=== PATIENT | male | born 1965 | race Caucasian/White ===

== ENCOUNTER 2018-05-04 16:06 | Observation (INO) | payer MEDICAID ==
[~2018-05-04] VITALS: Ht 177.8 cm; Wt 103.1 kg
[~2018-05-04 16:06] MED LIST: ALLO300T80 PO; BENA40TA3 PO; BUDE10.2; CARV12.543 PO; OXYC15TA60
[2018-05-04] MEDS ORDERED: ONDANSETRON 2MG/ML, 2ML IVPush ONE (16:30)
[2018-05-04] MEDS ORDERED: MAALOX/HYOSCYAMINE/LIDOCAINE 45 ML BTL PO ONE (16:30)
[2018-05-04] MEDS ORDERED: ASPIRIN 81 MG TABLET CHEW PO ONE (16:30)
[2018-05-04] MEDS ORDERED: ASPIRIN 81 MG TABLET CHEW ONE (16:48)
[2018-05-04] MEDS ORDERED: MAALOX/HYOSCYAMINE/LIDOCAINE 45 ML BTL ONE (16:49)
[2018-05-04] MEDS ORDERED: ONDANSETRON 2MG/ML, 2ML ONE (16:49)
[2018-05-04 16:51] LABS: BASOPHILS # (AUTO) 0.05 x10^3/uL (0-0.1); BASOPHILS % (AUTO) 0 % (0-1); EOSINOPHILS # (AUTO) 0.35 x10^3/uL (0-0.4); EOSINOPHILS % (AUTO) 2 % (1-7); LYMPHOCYTES # (AUTO) 3.18 x10^3/uL (1-3.4); LYMPHOCYTES % (AUTO) 21 % (22-44); MD NO; MEAN CORPUSCULAR HEMOGLOBIN 29.2 pg (27.5-34.5); MEAN CORPUSCULAR HGB CONC 33.2 g/dL (33.2-36.2); MEAN CORPUSCULAR VOLUME 87.7 fL (81-97); MEAN PLATELET VOLUME 7.8 fL (7.4-10.4); MONOCYTES # (AUTO) 0.79 x10^3/uL (0.2-0.8); MONOCYTES % (AUTO) 5 % (2-9); NEUTROPHILS # (AUTO) 10.75 x10^3/uL (1.8-6.8); NEUTROPHILS % (AUTO) 71 % (42-75); PLATELET COUNT 269 x10^3/uL (130-400); RED BLOOD COUNT 6.12 x10^6/uL (4.38-5.82); RED CELL DISTRIBUTION WIDTH 15.3 % (9.4-14.8)
[2018-05-04 16:52] LABS: ALANINE AMINOTRANSFERASE 39 U/L (12-78); ALBUMIN 4.5 g/dL (3.4-5.0); ANION GAP 11 mmol/L (5-15); CALCIUM 9.1 mg/dL (8.5-10.1); CHLORIDE 98 mmol/L (98-107); CREATININE 1.12 mg/dL (0.7-1.3)
[2018-05-04 16:56] LABS: ALKALINE PHOSPHATASE 53 U/L (45-117); BILIRUBIN,TOTAL 0.6 mg/dL (0.2-1.0); TOTAL PROTEIN 8.2 g/dL (6.4-8.2); TROPONIN I < 0.015 ng/mL (0.000-0.045)
[2018-05-04] MEDS ORDERED: SODIUM CHLORIDE FLUSH 10ML SYR IVF ONE (17:00)
[2018-05-04] MEDS ORDERED: FLUT1AER INH (17:00)
[2018-05-04] MEDS ORDERED: MORPHINE SULFATE 4 MG/ML, 1ML ONE ×2 (17:03→18:12)
[2018-05-04] MEDS ORDERED: MORPHINE SULFATE 4 MG/ML, 1ML IVPush ONE ×2 (17:30→18:30)
[2018-05-04] MEDS ORDERED: METOCLOPRAMIDE 5 MG/ML, 2ML ONE ×2 (17:31→19:48)
[2018-05-04] MEDS ORDERED: METOCLOPRAMIDE 5 MG/ML, 2ML IVPush ONE ×2 (18:00→18:30)
[2018-05-04] MEDS ORDERED: OMNIPAQUE 350 MG/ML, 100ML BOTTLE ONE (19:10)
[2018-05-04] MEDS ORDERED: HALOPERIDOL 5 MG/ML ONE (20:21)
[2018-05-04] MEDS ORDERED: CAPSAICIN CRM 0.075%, 60GM TP ONE (20:30)
[2018-05-04] MEDS ORDERED: HALOPERIDOL 5 MG/ML IV ONE (20:30)
[2018-05-04] MEDS ORDERED: morphine SULFATE 10 MG/ML, 1ML IVPush PRN (21:00)
[2018-05-04] MEDS ORDERED: POLYETHYLENE GLYCOL 17 GM PACKET PO PRN (21:00)
[2018-05-04] MEDS ORDERED: PROMETHAZINE 25 MG/ML, 1ML IM PRN (21:00)
[2018-05-04] MEDS ORDERED: LABETALOL 5MG/ML, 20ML IVPush PRN (21:00)
[2018-05-04] MEDS ORDERED: ONDANSETRON ODT 4 MG PO PRN (21:00)
[2018-05-04] MEDS ORDERED: ACETAMINOPHEN 325 MG TABLET PO PRN (21:00)
[2018-05-04] MEDS ORDERED: BISACODYL 10 MG SUPP PR PRN (21:00)
[2018-05-04] MEDS ORDERED: hydrALAzine 20 MG/ML, 1ML IVPush PRN (21:00)
[2018-05-04] MEDS ORDERED: NITROGLYCERIN 0.4 MG BOTTLE (25 TABS) SL PRN (21:00)
[2018-05-04] MEDS ORDERED: ONDANSETRON 2MG/ML, 2ML IVPush PRN (21:00)
[2018-05-04 21:23] LABS: RAPID INFLUENZA A Negative (Negative); RAPID INFLUENZA B Negative (Negative)
[2018-05-04 21:46] LABS: FREE T4 (FREE THYROXINE) 1.1 ng/dL (0.76-1.46); THYROID STIMULATING HORMONE 1.62 mIU/L (0.358-3.740)
[2018-05-04 21:47] VITALS: BP 156/104
[2018-05-04] MEDS: HEPARIN 5,000 UNITS/ML, 1ML SQ SCH (22:40)
[2018-05-04] MEDS: SODIUM CHLORIDE 0.9% 1,000 ML IV SCH (22:40)
[2018-05-04 23:50] LABS: TROPONIN I < 0.015 ng/mL (0.000-0.045)
[2018-05-05] VITALS (7 sets, daily range): BP systolic 156–190; BP diastolic 91–118
[2018-05-05 01:52] LABS: CULTURE INDICATED? NO; MICROSCOPIC NOT IND
[2018-05-05] MEDS: HEPARIN 5,000 UNITS/ML, 1ML SQ SCH ×2 (05:44→12:45)
[2018-05-05 05:53] LABS: BASOPHILS # (AUTO) 0.01 x10^3/uL (0-0.1); BASOPHILS % (AUTO) 0 % (0-1); EOSINOPHILS % (AUTO) 0 % (1-7); LYMPHOCYTES # (AUTO) 1.35 x10^3/uL (1-3.4); LYMPHOCYTES % (AUTO) 9 % (22-44); MD NO; MEAN PLATELET VOLUME 8.4 fL (7.4-10.4); MONOCYTES # (AUTO) 0.18 x10^3/uL (0.2-0.8); MONOCYTES % (AUTO) 1 % (2-9); NEUTROPHILS # (AUTO) 13.11 x10^3/uL (1.8-6.8); NEUTROPHILS % (AUTO) 90 % (42-75); PLATELET COUNT 264 x10^3/uL (130-400); RED BLOOD COUNT 5.95 x10^6/uL (4.38-5.82); RED CELL DISTRIBUTION WIDTH 15.4 % (9.4-14.8)
[2018-05-05] MEDS: OXYcodone IR 5MG TABLET PO PRN ×2 (05:53→12:45)
[2018-05-05] MEDS ORDERED: ASPIRIN 325 MG TABLET EC PO SCH (06:00)
[2018-05-05 06:02] LABS: CHLORIDE 100 mmol/L (98-107)
[2018-05-05 06:12] LABS: ALANINE AMINOTRANSFERASE 41 U/L (12-78); ALBUMIN 4.1 g/dL (3.4-5.0); ALKALINE PHOSPHATASE 50 U/L (45-117); ANION GAP 9 mmol/L (5-15); BILIRUBIN,TOTAL 0.5 mg/dL (0.2-1.0); CALCIUM 8.3 mg/dL (8.5-10.1); CHOL/HDL RATIO 5.4; CHOLESTEROL, TOTAL 172 mg/dL (140-239); CREATININE 0.92 mg/dL (0.7-1.3); HDL CHOL % 19 % (26-37); HDL CHOLESTEROL (DIRECT) 32 mg/dL (40-60); LDL CHOLESTEROL,CALCULATED 87 mg/dL (54-169); LDL/HDL RATIO 2.7 (0.5-3.0); TOTAL PROTEIN 7.4 g/dL (6.4-8.2); TRIGLYCERIDES 265 mg/dL (50-200); TROPONIN I < 0.015 ng/mL (0.000-0.045); VLDL CHOLESTEROL 53 mg/dL (0-25)
[2018-05-05] MEDS: SODIUM CHLORIDE 0.9% 1,000 ML IV SCH (06:35)
[2018-05-05] MEDS ORDERED: FLUTICASONE/VILANTEROL 100-25MCG/INH INH SCH (09:00)
[2018-05-05] MEDS ORDERED: SENNA/DOCUSATE TABLET PO SCH (09:00)
[2018-05-05] MEDS ORDERED: BENAZEPRIL 20 MG TABLET PO SCH (09:00)
[2018-05-05] MEDS ORDERED: CARVEDILOL 12.5 MG TABLET PO SCH (09:00)
[2018-05-05] MEDS ORDERED: ALLOPURINOL 300 MG TABLET PO SCH (09:00)
[2018-05-05] MEDS ORDERED: REGADENOSON 0.4 MG/5 ML SYRINGE ONE (10:49)
[2018-05-05] MEDS ORDERED: AMLO5TAB7 PO (13:11)
== END 2018-05-05 14:31 | disposition home or self-care (01) ==
LOC: ED 18:14 → 5SO 20:57 → INTOOBSV 20:57 → DCLOUNGE 05-05 14:21
PROVIDERS: ADMIT Internal Medicine; ATTEND Internal Medicine
DX: R07.9 Chest pain, unspecified (principal); R10.9 Unspecified abdominal pain; R11.2 Nausea with vomiting, unspecified; F12.10 Cannabis abuse, uncomplicated; I10 Essential (primary) hypertension; J45.909 Unspecified asthma, uncomplicated; K40.90 Unilateral inguinal hernia, without obstruction or gangrene, not specified as recurrent; K57.30 Diverticulosis of large intestine without perforation or abscess without bleeding; M51.37 Other intervertebral disc degeneration, lumbosacral region; M1A.9XX0 Chronic gout, unspecified, without tophus (tophi)
CPT/HCPCS: 36415; 71045; 71275; 74174; 78452; 80053; 80061; 81003; 83036; 83690; 83735; 83880; 84439; 84443; 84484; 85025; 87400; 93005; 93017; 96361; 96372; 96374; 96375; 96376; 99285; A9502; C9898; G0378; J0360; J1630; J1644; J2405; J2765; J2785; J7030; Q0162; Q9967

== ENCOUNTER → 2018-06-02 | Outpatient (CLI) | payer MEDICAID ==
[~2018-06-02] MED LIST changes: +AMLO-150 PO; +FLUT1AER INH
== END | disposition home or self-care (01) ==
LOC: PETCFH 09:50
PROVIDERS: ATTEND Nurse Practitioner Family
DX: K80.50 Calculus of bile duct without cholangitis or cholecystitis without obstruction (principal); K31.84 Gastroparesis; R10.13 Epigastric pain; R11.2 Nausea with vomiting, unspecified
CPT/HCPCS: 78264; A9541

== ENCOUNTER 2018-06-13 13:35 | Observation (INO) | payer MEDICAID ==
[~2018-06-13] VITALS: Ht 180.3 cm; Wt 103.0 kg
--- NOTE | 2018-06-13 13:57 | NUR ---
PT ARRIVED IN TRIAGE DIAPHORETIC COMPLAINING OF CHEST PAIN AND SHORTNESS OF BREATH. UNABLE TO GET EKG IN TRIAGE, BROUGHT STRAIGHT BACK TO T3. PT HAS HX OF HTN AND ASTHMA. PAIN STARTED LAST NIGHT AND SUBSIDED A BIT AND IS NOT BACK. ALERT AND ORIENTED. EKG WITH A LOT OF ARTIFACT DELAYED OBTAINING FOR A FEW MINUTES. IV ACCESS ATTEMPTED.
[2018-06-13] MEDS ORDERED: SODIUM CHLORIDE FLUSH 10ML SYR IVF ONE (14:00)
[2018-06-13] MEDS ORDERED: ASPIRIN 81 MG TABLET CHEW PO ONE (14:00)
[2018-06-13] MEDS ORDERED: ASPIRIN 81 MG TABLET CHEW ONE (14:00)
[2018-06-13] MEDS ORDERED: NITROGLYCERIN SINGLE TAB 0.4 MG SL ONE (14:01)
[2018-06-13] MEDS: NITROGLYCERIN SINGLE TAB 0.4 MG SL PRN ×2 (14:02→14:40)
[2018-06-13] MEDS ORDERED: ONDANSETRON 2MG/ML, 2ML ONE ×2 (14:14→15:49)
--- NOTE | 2018-06-13 14:18 | NUR ---
NAUSEA AND DRY HEAVING. UNABLE TO GIVE SECOND DOSE OF NTG AT THIS TIME. NO RELIEF FROM FIRST DOSE. ZOFRAN ORDERED.
[2018-06-13 14:25] LABS: ALANINE AMINOTRANSFERASE 34 U/L (12-78); ALBUMIN 5.2 g/dL (3.4-5.0); ANION GAP 6 mmol/L (5-15); CALCIUM 9.7 mg/dL (8.5-10.1); CHLORIDE 103 mmol/L (98-107); CREATININE 1.23 mg/dL (0.7-1.3)
[2018-06-13 14:26] LABS: D-DIMER 0.2 ug/mlFEU (0.00-0.52); INTERNATIONAL NORMALIZED RATIO 1.09 (0.93-1.1); PROTHROMBIN TIME 11.5 Seconds (9.6-11.5)
[2018-06-13 14:29] LABS: ALKALINE PHOSPHATASE 54 U/L (45-117); BILIRUBIN,TOTAL 0.8 mg/dL (0.2-1.0); TROPONIN I < 0.015 ng/mL (0.000-0.045)
[2018-06-13] MEDS ORDERED: ONDANSETRON 2MG/ML, 2ML IVPush ONE ×2 (14:30→16:00)
--- NOTE | 2018-06-13 14:31 | NUR ---
PT STILL HAVING SIGNIFICANT NAUSEA. STATES HE HAS HAD NAUSEA AND ABD PROBLEMS SINCE 2007. HE RECENTLY HAD A STUDY TO LOOK AT STOMACH EMPTYING. TEST WAS NORMAL. CP NOT IMPROVED. MD AWARE THAT SECOND NTG NOT GIVEN DUE TO VOMITING.
[2018-06-13 14:35] LABS: MD YES; MEAN CORPUSCULAR HEMOGLOBIN 29.3 pg (27.5-34.5); MEAN CORPUSCULAR HGB CONC 33.1 g/dL (33.2-36.2); MEAN CORPUSCULAR VOLUME 88.7 fL (81-97); MEAN PLATELET VOLUME 7.9 fL (7.4-10.4); PLATELET COUNT 321 x10^3/uL (130-400); RED BLOOD COUNT 6.48 x10^6/uL (4.38-5.82); RED CELL DISTRIBUTION WIDTH 15.7 % (9.4-14.8)
[2018-06-13] MEDS ORDERED: MORPHINE SULFATE 4 MG/ML, 1ML ONE ×4 (14:39→16:47)
[2018-06-13] MEDS: MORPHINE SULFATE 4 MG/ML, 1ML IVPush PRN ×4 (14:40→16:48)
--- NOTE | 2018-06-13 14:43 | NUR ---
NO RELIEF FROM SECOND NTG. MORPHINE GIVEN PER ORDER.
--- NOTE | 2018-06-13 14:55 | NUR ---
DISCUSSION WITH REGARDING ELEVATED WBC. DISCUSSED POSSIBILITY OF SEPSIS. NO NEW ORDERS AT THIS TIME.
[2018-06-13] MEDS ORDERED: PROMETHAZINE 25 MG/ML, 1ML ONE (14:57)
[2018-06-13] MEDS ORDERED: PROMETHAZINE 25 MG/ML, 1ML IM ONE (15:00)
[2018-06-13 15:01] LABS: SEG#(MANUAL) 16.73 x10^3/uL (1.8-6.8); SEGS% (MANUAL) 89 % (42-75)
[2018-06-13 15:02] LABS: EOS#(MANUAL) 0.19 x10^3/uL (0.0-0.4); EOS% (MANUAL) 1 % (1-7); HYPOCHROMIA 1+; LYMPH#(MANUAL) 1.13 x10^3/uL (1-3.4); LYMPHS% (MANUAL) 6 % (22-44); MONOS#(MANUAL) 0.75 x10^3/uL (0.3-2.7); MONOS% (MANUAL) 4 % (2-9)
--- NOTE | 2018-06-13 15:02 | NUR ---
PT MEDICATED WITH PHENERGAN. EMESIS 200CC.
[2018-06-13 15:03] LABS: <PLATELET ESTIMATE> ADEQUATE; <PLT MORPHOLOGY> NORMAL PLT MORPH
--- NOTE | 2018-06-13 15:26 | NUR ---
REPORT RECEIVED FROM MATEUSZ PEREZ CARE OF PATIENT AT THIS TIME. PT SITTING IN BED WITH WASHCLOTH TO HEAD. PT RECENTLY MEDICATED FOR PAIN AND STATES "IT TOOK THE EDGE OFF" PT APPEARS TO BE UNCOMFORTABLE AT THIS TIME. VITAL SIGNS STABLE. WILL CONTINUE TO MONITOR.
[2018-06-13] MEDS ORDERED: SODIUM CHLORIDE FLUSH 10ML SYR IVF PRN (15:30)
--- NOTE | 2018-06-13 15:55 | NUR ---
PT MEDICATED FOR PAIN AND NAUSEA PER ORDERS. PT STATES PAIN 8/10
[2018-06-13] MEDS ORDERED: BISACODYL 10 MG SUPP PR PRN (16:00)
[2018-06-13] MEDS ORDERED: hydrALAzine 20 MG/ML, 1ML IVPush PRN (16:00)
[2018-06-13] MEDS ORDERED: ENOXAPARIN 40 MG/0.4 ML SQ SCH (16:00)
[2018-06-13] MEDS ORDERED: ONDANSETRON 2MG/ML, 2ML IVPush PRN (16:00)
[2018-06-13] MEDS ORDERED: PROMETHAZINE 25 MG/ML, 1ML IM PRN (16:00)
[2018-06-13] MEDS ORDERED: morphine SULFATE 10 MG/ML, 1ML IVPush PRN (16:00)
[2018-06-13] MEDS ORDERED: OXYcodone IR 5MG TABLET PO PRN (16:00)
[2018-06-13] MEDS ORDERED: ZOLPIDEM 5MG TABLET PO PRN (16:00)
[2018-06-13] MEDS ORDERED: ONDANSETRON ODT 4 MG PO PRN (16:00)
--- NOTE | 2018-06-13 16:16 | NUR ---
PT PLACED ON HOSPITAL BED AND PROVIDED BLANKET AND PILLOW FOR COMFORT. PT HAS NO KNEW COMPLAINTS AT THIS TIME. VITAL SIGNS REMAIN UNCHANGED.
[2018-06-13 16:23] LABS: HCT (SEDRATE) 57.4 % (39.2-51.8)
[2018-06-13 16:33] LABS: FREE T4 (FREE THYROXINE) 1.59 ng/dL (0.76-1.46); TROPONIN I < 0.015 ng/mL (0.000-0.045)
[2018-06-13 16:39] LABS: THYROID STIMULATING HORMONE 0.222 mIU/L (0.358-3.740)
[2018-06-13 16:47] LABS: HEMOGLOBIN A1C 6.4 % (4.2-6.3)
[2018-06-13] MEDS: SODIUM CHLORIDE 0.9% 1,000 ML IV SCH (16:50)
--- NOTE | 2018-06-13 16:56 | NUR ---
PT MEDICATED FOR PAIN. STATUS UNCHANGED. PT A TELE HOLD. AWAITING A BED ASSIGNMENT.
--- NOTE | 2018-06-13 17:15 | NUR ---
RECV REPORT PT TO ROOM 35
--- NOTE | 2018-06-13 17:40 | NUR ---
PT TO CT IV GOT PULLED IN CT ATTEMPTING TO REPLACE IV IN THE CT UNIT UNDER US AT 1809
[2018-06-13 20:00] VITALS: BP 179/120
[2018-06-13] MEDS ORDERED: OMNIPAQUE 350 MG/ML, 100ML BOTTLE ONE (20:09)
[2018-06-13] MEDS: CARVEDILOL 12.5 MG TABLET PO SCH (20:13)
[2018-06-13] MEDS ORDERED: MAALOX/HYOSCYAMINE/LIDOCAINE 45 ML BTL PO ONE (20:30)
[2018-06-13 22:15] LABS: TROPONIN I < 0.015 ng/mL (0.000-0.045)
[2018-06-13 22:54] VITALS: BP 179/120
[2018-06-14 01:49] VITALS: BP 130/80
[2018-06-14] MEDS: SODIUM CHLORIDE 0.9% 1,000 ML IV SCH ×2 (01:52→09:08)
[2018-06-14] MEDS ORDERED: MAALOX/HYOSCYAMINE/LIDOCAINE 45 ML BTL PO ONE (03:30)
[2018-06-14 05:47] LABS: ANION GAP 7 mmol/L (5-15); CALCIUM 8.4 mg/dL (8.5-10.1); CHLORIDE 105 mmol/L (98-107)
[2018-06-14 05:51] LABS: CHOL/HDL RATIO 5.9; CHOLESTEROL, TOTAL 136 mg/dL (140-239); CREATININE 0.85 mg/dL (0.7-1.3); HDL CHOL % 17 % (26-37); HDL CHOLESTEROL (DIRECT) 23 mg/dL (40-60); LDL CHOLESTEROL,CALCULATED 77 mg/dL (54-169); LDL/HDL RATIO 3.3 (0.5-3.0); TRIGLYCERIDES 181 mg/dL (50-200); VLDL CHOLESTEROL 36 mg/dL (0-25)
[2018-06-14 05:56] LABS: BASOPHILS # (AUTO) 0.04 x10^3/uL (0-0.1); BASOPHILS % (AUTO) 0 % (0-1); EOSINOPHILS # (AUTO) 0.05 x10^3/uL (0-0.4); EOSINOPHILS % (AUTO) 0 % (1-7); LYMPHOCYTES % (AUTO) 23 % (22-44); MD NO; MEAN CORPUSCULAR HEMOGLOBIN 29.5 pg (27.5-34.5); MEAN CORPUSCULAR VOLUME 89.3 fL (81-97); MEAN PLATELET VOLUME 8.1 fL (7.4-10.4); MONOCYTES # (AUTO) 0.65 x10^3/uL (0.2-0.8); MONOCYTES % (AUTO) 6 % (2-9); NEUTROPHILS # (AUTO) 8.02 x10^3/uL (1.8-6.8); NEUTROPHILS % (AUTO) 71 % (42-75); PLATELET COUNT 275 x10^3/uL (130-400); RED BLOOD COUNT 5.61 x10^6/uL (4.38-5.82)
[2018-06-14 07:03] VITALS: BP 117/78
[2018-06-14] MEDS ORDERED: PANTOPRAZOLE 40 MG IV IVPush SCH (07:30)
[2018-06-14] MEDS ORDERED: ALLOPURINOL 300 MG TABLET PO SCH (09:00)
[2018-06-14] MEDS ORDERED: AMLODIPINE 5 MG TABLET PO SCH (09:00)
[2018-06-14] MEDS: CARVEDILOL 12.5 MG TABLET PO SCH (09:07)
[2018-06-14 13:01] VITALS: BP 111/76
[2018-06-14 13:33] LABS: FREE T4 (FREE THYROXINE) 1.29 ng/dL (0.76-1.46)
== END 2018-06-14 15:04 | disposition home or self-care (01) ==
LOC: ED 15:34 → EDIP 15:39 → INTOOBSV 15:39 → 5SO 18:52
PROVIDERS: ADMIT Hospitalist; ATTEND Hospitalist
DX: R07.89 Other chest pain (principal); R11.2 Nausea with vomiting, unspecified; I10 Essential (primary) hypertension; M10.9 Gout, unspecified; J45.909 Unspecified asthma, uncomplicated; D72.829 Elevated white blood cell count, unspecified; F12.90 Cannabis use, unspecified, uncomplicated; Z79.899 Other long term (current) drug therapy; Z79.1 Long term (current) use of non-steroidal anti-inflammatories (NSAID)
CPT/HCPCS: 36415; 71045; 71275; 80048; 80053; 80061; 83036; 83690; 83880; 84439; 84443; 84481; 84484; 85025; 85379; 85610; 85651; 85730; 93005; 96361; 96372; 96374; 96375; 96376; 99285; C9113; G0378; J0360; J1650; J2405; J2550; J7030; Q0162; Q9967

== ENCOUNTER 2018-06-15 07:25 | Observation (INO) | payer MEDICAID ==
[~2018-06-15] VITALS: Ht 180.3 cm; Wt 97.4 kg
[2018-06-15] MEDS ORDERED: PROMETHAZINE 25 MG/ML, 1ML IM ONE (08:00)
--- NOTE | 2018-06-15 08:04 | NUR ---
pt upright on gurney with eyes closed, responds approp to staff, comfort measures provided, call light within reach.
[2018-06-15] MEDS ORDERED: PROMETHAZINE 25 MG/ML, 1ML ONE (08:05)
[2018-06-15 08:06] LABS: BASOPHILS # (AUTO) 0.07 x10^3/uL (0-0.1); BASOPHILS % (AUTO) 1 % (0-1); EOSINOPHILS # (AUTO) 0.19 x10^3/uL (0-0.4); EOSINOPHILS % (AUTO) 2 % (1-7); LYMPHOCYTES # (AUTO) 2.07 x10^3/uL (1-3.4); LYMPHOCYTES % (AUTO) 21 % (22-44); MD NO; MEAN CORPUSCULAR HEMOGLOBIN 29.1 pg (27.5-34.5); MEAN CORPUSCULAR HGB CONC 32.7 g/dL (33.2-36.2); MEAN CORPUSCULAR VOLUME 88.9 fL (81-97); MEAN PLATELET VOLUME 7.6 fL (7.4-10.4); MONOCYTES # (AUTO) 0.46 x10^3/uL (0.2-0.8); MONOCYTES % (AUTO) 5 % (2-9); NEUTROPHILS # (AUTO) 7.15 x10^3/uL (1.8-6.8); NEUTROPHILS % (AUTO) 72 % (42-75); PLATELET COUNT 282 x10^3/uL (130-400); RED BLOOD COUNT 5.95 x10^6/uL (4.38-5.82); RED CELL DISTRIBUTION WIDTH 15.3 % (9.4-14.8)
[2018-06-15 08:20] LABS: ALANINE AMINOTRANSFERASE 31 U/L (12-78); ALBUMIN 4.5 g/dL (3.4-5.0); ANION GAP 7 mmol/L (5-15); CALCIUM 8.9 mg/dL (8.5-10.1); CHLORIDE 105 mmol/L (98-107); CREATININE 0.93 mg/dL (0.7-1.3)
[2018-06-15 08:22] LABS: ALKALINE PHOSPHATASE 45 U/L (45-117); BILIRUBIN,TOTAL 0.8 mg/dL (0.2-1.0); TOTAL PROTEIN 7.7 g/dL (6.4-8.2)
[2018-06-15 08:24] LABS: TROPONIN I < 0.015 ng/mL (0.000-0.045)
[2018-06-15] MEDS ORDERED: ZIPRASIDONE 20 MG INJ IM ONE ×2 (08:30→08:41)
--- NOTE | 2018-06-15 08:55 | NUR ---
pt remains upright on gurney with eyes closed, responds approp to staff, comfort measures provided, call light within reach.
--- NOTE | 2018-06-15 09:58 | NUR ---
pt upright on gurney with eyes closed, responds approp to staff, NAD- nausea better after geodon, comfort measures provided, call light within reach.
[2018-06-15] MEDS ORDERED: METOCLOPRAMIDE 5 MG/ML, 2ML ONE ×2 (10:27→16:24)
[2018-06-15] MEDS ORDERED: METOCLOPRAMIDE 5 MG/ML, 2ML IM PRN (10:30)
--- NOTE | 2018-06-15 10:56 | NUR ---
pt remains upright on gurney with eyes closed, responds approp to staff, comfort measures provided, call light within reach.
[2018-06-15] MEDS ORDERED: METOCLOPRAMIDE 5 MG/ML, 2ML IM ONE (11:00)
[2018-06-15 11:01] LABS: TROPONIN I < 0.015 ng/mL (0.000-0.045)
--- NOTE | 2018-06-15 11:45 | NUR ---
unable to establish PIV, awaiting US placement- wire charger aware.
[2018-06-15] MEDS ORDERED: MAALOX/HYOSCYAMINE/LIDOCAINE 45 ML BTL PO ONE (12:00)
--- NOTE | 2018-06-15 12:01 | NUR ---
pt upright on gurney awake & calm, responds approp to staff, comfort measures provided, call light within reach.
[2018-06-15] MEDS ORDERED: D5%-0.45% NACL 1,000 ML IV SCH (12:12)
[2018-06-15] MEDS ORDERED: TRAZODONE 50MG TABLET PO PRN (12:30)
[2018-06-15] MEDS ORDERED: ONDANSETRON ODT 4 MG PO PRN (12:30)
[2018-06-15] MEDS ORDERED: LABETALOL 5MG/ML, 20ML IVPush PRN (12:30)
[2018-06-15] MEDS ORDERED: ENALAPRILAT 1.25 MG/ML, 2ML IVPush PRN (12:30)
[2018-06-15] MEDS ORDERED: ACETAMINOPHEN 325 MG TABLET PO PRN (12:30)
--- NOTE | 2018-06-15 12:31 | NUR ---
Pt to be admitted to med-surg, room 459. Report called to Jai.
[2018-06-15 13:00] VITALS: BP 175/113
[2018-06-15] MEDS: BENAZEPRIL 20 MG TABLET PO SCH (13:51)
[2018-06-15] MEDS: AMLODIPINE 5 MG TABLET PO SCH (13:51)
[2018-06-15] MEDS: MAALOX/HYOSCYAMINE/LIDOCAINE 45 ML BTL PO SCH ×2 (14:55→22:50)
[2018-06-15 15:53] VITALS: BP 171/108
[2018-06-15] MEDS: ONDANSETRON 2MG/ML, 2ML IVPush PRN ×2 (16:03→22:50)
[2018-06-15] MEDS ORDERED: METOCLOPRAMIDE 5 MG/ML, 2ML IVPush ONE (16:30)
[2018-06-15 19:10] VITALS: BP 140/95
[2018-06-15] MEDS: CARVEDILOL 12.5 MG TABLET PO SCH (21:00)
[2018-06-15] MEDS ORDERED: CARVEDILOL 6.25 MG TABLET ONE (21:25)
[2018-06-15] MEDS: FAMOTIDINE 20 MG/2 ML IVPush SCH (22:50)
[2018-06-16 02:04] VITALS: BP 116/73
[2018-06-16] MEDS: MAALOX/HYOSCYAMINE/LIDOCAINE 45 ML BTL PO SCH ×4 (05:00→23:12)
[2018-06-16 05:50] LABS: BASOPHILS # (AUTO) 0.03 x10^3/uL (0-0.1); BASOPHILS % (AUTO) 0 % (0-1); EOSINOPHILS # (AUTO) 0.16 x10^3/uL (0-0.4); EOSINOPHILS % (AUTO) 2 % (1-7); LYMPHOCYTES # (AUTO) 2.37 x10^3/uL (1-3.4); LYMPHOCYTES % (AUTO) 28 % (22-44); MD NO; MEAN CORPUSCULAR HEMOGLOBIN 29.5 pg (27.5-34.5); MEAN CORPUSCULAR HGB CONC 33.2 g/dL (33.2-36.2); MEAN CORPUSCULAR VOLUME 88.7 fL (81-97); MEAN PLATELET VOLUME 8.2 fL (7.4-10.4); MONOCYTES # (AUTO) 0.67 x10^3/uL (0.2-0.8); MONOCYTES % (AUTO) 8 % (2-9); NEUTROPHILS # (AUTO) 5.16 x10^3/uL (1.8-6.8); NEUTROPHILS % (AUTO) 62 % (42-75); PLATELET COUNT 232 x10^3/uL (130-400); RED CELL DISTRIBUTION WIDTH 15.2 % (9.4-14.8)
[2018-06-16 05:58] LABS: ALBUMIN 3.8 g/dL (3.4-5.0); ANION GAP 8 mmol/L (5-15); CALCIUM 8.2 mg/dL (8.5-10.1); CHLORIDE 102 mmol/L (98-107)
[2018-06-16 06:03] LABS: ALANINE AMINOTRANSFERASE 25 U/L (12-78); ALKALINE PHOSPHATASE 40 U/L (45-117); BILIRUBIN,TOTAL 0.8 mg/dL (0.2-1.0); CREATININE 0.74 mg/dL (0.7-1.3); TOTAL PROTEIN 6.6 g/dL (6.4-8.2)
[2018-06-16 08:00] VITALS: BP 129/82
[2018-06-16] MEDS: FAMOTIDINE 20 MG/2 ML IVPush SCH (08:11)
[2018-06-16] MEDS: PANTOPROZOLE 40MG TABLET PO SCH (08:12)
[2018-06-16] MEDS: CARVEDILOL 12.5 MG TABLET PO SCH ×2 (08:12→21:00)
[2018-06-16] MEDS: BENAZEPRIL 20 MG TABLET PO SCH (08:12)
[2018-06-16] MEDS: AMLODIPINE 5 MG TABLET PO SCH (08:12)
[2018-06-16] MEDS: ALLOPURINOL 300 MG TABLET PO SCH (08:12)
[2018-06-16] MEDS ORDERED: PROMETHAZINE 25MG TABLET PO PRN (10:00)
[2018-06-16] MEDS: SUCRALFATE 1 GM/10 ML UDC PO SCH ×3 (11:46→23:12)
[2018-06-16] MEDS ORDERED: POTASSIUM CHLORIDE 20 MEQ TAB.ER.PRT PO ONE (13:00)
[2018-06-16 13:08] LABS: CLOSTRIDIUM DIFFICILE ANTIGEN NEGATIVE; CLOSTRIDIUM DIFFICILE TOXIN NEGATIVE (Negative)
[2018-06-16 14:00] VITALS: BP 109/74
[2018-06-16 18:43] VITALS: BP 110/70
[2018-06-16] MEDS ORDERED: CARVEDILOL 6.25 MG TABLET ONE (22:41)
[2018-06-16] MEDS: FAMOTIDINE 20 MG TABLET PO SCH (23:13)
[2018-06-17 00:52] VITALS: BP 107/68
[2018-06-17] MEDS: ONDANSETRON 2MG/ML, 2ML IVPush PRN (04:40)
[2018-06-17] MEDS: MAALOX/HYOSCYAMINE/LIDOCAINE 45 ML BTL PO SCH ×3 (04:41→16:22)
[2018-06-17 06:13] LABS: BASOPHILS # (AUTO) 0.05 x10^3/uL (0-0.1); BASOPHILS % (AUTO) 1 % (0-1); EOSINOPHILS # (AUTO) 0.21 x10^3/uL (0-0.4); EOSINOPHILS % (AUTO) 3 % (1-7); LYMPHOCYTES # (AUTO) 2.34 x10^3/uL (1-3.4); LYMPHOCYTES % (AUTO) 31 % (22-44); MD NO; MEAN CORPUSCULAR HEMOGLOBIN 29.3 pg (27.5-34.5); MEAN CORPUSCULAR HGB CONC 32.4 g/dL (33.2-36.2); MEAN CORPUSCULAR VOLUME 90.4 fL (81-97); MEAN PLATELET VOLUME 8.3 fL (7.4-10.4); MONOCYTES % (AUTO) 5 % (2-9); NEUTROPHILS # (AUTO) 4.51 x10^3/uL (1.8-6.8); NEUTROPHILS % (AUTO) 60 % (42-75); PLATELET COUNT 265 x10^3/uL (130-400); RED CELL DISTRIBUTION WIDTH 14.9 % (9.4-14.8)
[2018-06-17 06:24] LABS: ANION GAP 7 mmol/L (5-15); CALCIUM 8.6 mg/dL (8.5-10.1); CHLORIDE 100 mmol/L (98-107)
[2018-06-17 06:25] LABS: CREATININE 0.87 mg/dL (0.7-1.3)
[2018-06-17] MEDS: SUCRALFATE 1 GM/10 ML UDC PO SCH ×3 (06:50→16:22)
[2018-06-17] MEDS: PANTOPROZOLE 40MG TABLET PO SCH (06:50)
[2018-06-17 06:52] VITALS: BP 100/64
[2018-06-17] MEDS: CARVEDILOL 12.5 MG TABLET PO SCH (09:00)
[2018-06-17] MEDS: FAMOTIDINE 20 MG TABLET PO SCH (09:36)
[2018-06-17] MEDS: AMLODIPINE 5 MG TABLET PO SCH (09:36)
[2018-06-17] MEDS: BENAZEPRIL 20 MG TABLET PO SCH (09:36)
[2018-06-17] MEDS: ALLOPURINOL 300 MG TABLET PO SCH (09:36)
[2018-06-17] MEDS ORDERED: CARVEDILOL 6.25 MG TABLET ONE (09:38)
[2018-06-17 13:11] VITALS: BP 118/78
[2018-06-17] MEDS ORDERED: PROM25TA10 PO (16:53)
[2018-06-17] MEDS ORDERED: SUCR1ORA5 PO (16:53)
[2018-06-17] MEDS ORDERED: ONDA4TAB7 PO (16:53)
== END 2018-06-17 17:45 | disposition home or self-care (01) ==
LOC: ED 09:10 → EDIP 11:34 → INTOOBSV 11:34 → 4NOR 12:59
PROVIDERS: ADMIT Internal Medicine; ATTEND Internal Medicine
DX: R11.2 Nausea with vomiting, unspecified (principal); I10 Essential (primary) hypertension; J45.909 Unspecified asthma, uncomplicated; K21.0 Gastro-esophageal reflux disease with esophagitis; Z80.1 Family history of malignant neoplasm of trachea, bronchus and lung; Z80.6 Family history of leukemia; Z87.891 Personal history of nicotine dependence
CPT/HCPCS: 36415; 74018; 74177; 80048; 80053; 83690; 84484; 85025; 87046; 87324; 87427; 93005; 96361; 96372; 96374; 96375; 96376; 99284; G0378; J2405; J2550; J2765; J3486; J3490; Q0169

== ENCOUNTER 2019-12-20 22:04 | Emergency (ER) | payer SELFPAY ==
[~2019-12-20] VITALS: Ht 177.8 cm; Wt 96.4 kg
[~2019-12-20 22:04] MED LIST changes: +ONDA4TAB7 PO; +PROM25TA10 PO; +SUCR1ORA5 PO
--- NOTE | 2019-12-20 22:51 | NUR ---
TASK RN: PT. TO ROOM FROM LOBBY AT THIS TIME.
[2019-12-20] MEDS ORDERED: SODIUM CHLORIDE 0.9% 1,000ML IVBOLUS ONE (23:00)
[2019-12-20 23:15] LABS: ALBUMIN 4.2 g/dL (3.4-5.0); ANION GAP 8 mmol/L (5-15); CALCIUM 8.8 mg/dL (8.5-10.1); CHLORIDE 96 mmol/L (98-107)
[2019-12-20 23:21] LABS: ALANINE AMINOTRANSFERASE 23 U/L (12-78); ALKALINE PHOSPHATASE 57 U/L (45-117); BILIRUBIN,TOTAL 1.1 mg/dL (0.2-1.0); CREATININE 0.94 mg/dL (0.7-1.3); TOTAL PROTEIN 7.7 g/dL (6.4-8.2); TROPONIN I < 0.015 ng/mL (0.000-0.045)
[2019-12-20 23:45] LABS: MD YES; MEAN CORPUSCULAR HEMOGLOBIN 30.1 pg (27.5-34.5); MEAN CORPUSCULAR HGB CONC 32.4 g/dL (33.2-36.2); MEAN CORPUSCULAR VOLUME 92.8 fL (81-97); MEAN PLATELET VOLUME 8.1 fL (7.4-10.4); PLATELET COUNT 215 x10^3/uL (130-400); RED BLOOD COUNT 5.69 x10^6/uL (4.38-5.82); RED CELL DISTRIBUTION WIDTH 14.4 % (9.4-14.8)
[2019-12-20 23:46] LABS: BASOS#(MANUAL) 0.14 x10^3/uL (0-0.1); BASOS% (MANUAL) 1 % (0-1); LYMPH#(MANUAL) 2.16 x10^3/uL (1-3.4); LYMPHS% (MANUAL) 16 % (22-44); MONOS#(MANUAL) 0.41 x10^3/uL (0.3-2.7); MONOS% (MANUAL) 3 % (2-9); SEGS% (MANUAL) 80 % (42-75)
[2019-12-20 23:47] LABS: <PLATELET ESTIMATE> ADEQUATE; <PLT MORPHOLOGY> NORMAL PLT MORPH; <RBC MORPHOLOGY> NORMAL
[2019-12-21 00:41] VITALS: BP 160/112
[2019-12-21] MEDS ORDERED: CARVEDILOL 12.5 MG TABLET PO STA (00:45)
[2019-12-21] MEDS ORDERED: BENAZEPRIL 20 MG TABLET PO STA (00:45)
[2019-12-21] MEDS ORDERED: AMLODIPINE 5 MG TABLET PO ONE (01:00)
[2019-12-21] MEDS ORDERED: CARVEDILOL 12.5 MG TABLET ONE (01:24)
[2019-12-21] MEDS ORDERED: AMLODIPINE 5 MG TABLET ONE (01:24)
== END 2019-12-21 01:41 | disposition home or self-care (01) ==
LOC: ED 23:08
DX: R55 Syncope and collapse (principal); R00.0 Tachycardia, unspecified; R42 Dizziness and giddiness; R06.02 Shortness of breath; J02.9 Acute pharyngitis, unspecified; I10 Essential (primary) hypertension; J45.909 Unspecified asthma, uncomplicated; Z90.49 Acquired absence of other specified parts of digestive tract
CPT/HCPCS: 36415; 71045; 80053; 84484; 85025; 93005; 96360; 99285; J7030

== ENCOUNTER 2020-02-27 23:00 | Emergency (ER) | payer SELFPAY ==
[~2020-02-27] VITALS: Ht 177.8 cm; Wt 99.6 kg
[2020-02-27 23:04] VITALS: BP 178/118
--- NOTE | 2020-02-27 23:53 | NUR ---
PT SEEN BY MD AND DISCHARGED AT THIS TIME IN NAD
== END 2020-02-27 23:55 | disposition home or self-care (01) ==
LOC: ED 23:33
DX: F15.122 Other stimulant abuse with intoxication with perceptual disturbance (principal); F22 Delusional disorders; I10 Essential (primary) hypertension; J45.909 Unspecified asthma, uncomplicated; R00.0 Tachycardia, unspecified; Z90.49 Acquired absence of other specified parts of digestive tract
CPT/HCPCS: 99281